=== PATIENT | female | born 1985 | race Caucasian/White ===

== ENCOUNTER → 2017-03-07 | Outpatient (CLI) | payer BC ==
[~2017-03-07] MED LIST: OPTIRAY 320 IV PRN; PATIENT'S ALLERGY INFO NEEDS ENTERED SCH
--- NOTE | 2017-03-07 12:51 | DIAGNOSTIC IMAGING REPORT ---
ABDOMEN AND PELVIS CT WITH IV AND ORAL CONTRAST CT DOSE: 743.68 mGycm HISTORY: R19.00 Pelvic mass in femaleIV and oral [id number] TECHNIQUE: Multiaxial CT images of the abdomen and pelvis were performed following the use of intravenous and oral contrast. 91 mL Optiray 320 IV contrast was administered. A dose lowering technique was utilized adhering to the principles of ALARA. COMPARISON STUDY: None. FINDINGS: Minimal dependent bibasal atelectasis. No pneumatosis or pneumoperitoneum. Imaged inferior cardiac chambers are unremarkable. Low attenuating 5 mm lesion of the lateral left hepatic lobe suggests cyst. No intrahepatic biliary ductal dilation or suspicious hepatic mass lesions identified. Portal vein is patent. Spleen, pancreas, gallbladder and adrenal glands are within normal limits. Bilateral kidneys, ureters, urinary bladder and uterus are unremarkable. Follicles of the right ovary are noted. No adnexal mass lesions identified. Aorta is normal in course and caliber. No bulky retroperitoneal adenopathy. There is no bowel obstruction or focal bowel wall thickening identified. Appendix appears normal. There is a large mass of the right rectus sheath which is soft tissue attenuating and isoattenuating to musculature, 4.8 x 8.6 x 9.1 cm in AP, transverse and craniocaudal dimension. There is minimal inflammatory change within the adjacent peritoneum interposed between the dome of the urinary bladder and the soft tissue mass. The mass appears to be contained within the rectus musculature. No extension into adjacent soft tissues identified. There is mass effect upon the left rectus sheath muscle. Bones appear intact. Mild facet arthrosis at L5-S1. IMPRESSION: 1. Large soft tissue attenuating mass of the right rectus musculature measures up to 9.1 cm and appears to be contained within the rectus sheath without invasion into adjacent structures. This is nonspecific with differential considerations including a noninflammatory fibroblastic tumor (desmoid), soft tissue sarcoma, endometrial implant or less likely a rectus sheath hematoma. Close follow-up and surgical consultation recommended. 2. Remainder of the study is within normal limits. Electronically signed by: Justin Nguyen M.D. 03/07/2017 12:50 PM Dictated Date/Time: 03/07/2017 12:37 PM
== END | disposition home or self-care (01) ==
LOC: C.CTS 11:52
PROVIDERS: ATTEND Physician Assistant
DX: R19.00 Intra-abdominal and pelvic swelling, mass and lump, unspecified site (principal)

== ENCOUNTER → 2017-06-16 | Outpatient (CLI) | payer BC ==
[2017-06-19 14:05] LABS: HERPES SIMPLEX VIRUS CULT ISOLATED (NOT ISOLATED)
== END | disposition home or self-care (01) ==
LOC: C.LABPVFM 11:51
PROVIDERS: ATTEND Family Medicine
DX: B00.1 Herpesviral vesicular dermatitis (principal)